=== PATIENT | female | born 1960 | race Caucasian/White ===

== ENCOUNTER 2016-09-20 06:40 | Emergency (ER) | payer OTHER ==
[~2016-09-20] VITALS: Ht 167.6 cm; Wt 67.0 kg
[~2016-09-20 06:40] MED LIST: ACET-1256 PO; CNC/36 PO; LITH300T2 PO; LMC/150 PO; LTHSR/300 PO; ZOLP5TAB PO
[2016-09-20 06:43] VITALS: TEMP 36.3; Ht 167.6 cm; Wt 67.0 kg
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
[2016-09-20 07:31] LABS: BASO % 0.2 %; BASO ABS # 0.01 K/uL (0-0.2); COMPLETE YES; EOS % 0.6 %; HEMATOCRIT 43.5 % (37-47); IG% 0.2 %; LYMPH % 22.1 %; LYMPH ABS # 1.12 K/uL (1.2-3.4); MEAN CELL VOLUME 85.3 fL (80-100); MEAN CORPUSCULAR HEMOGLOBIN 29.2 pg (25-34); MEAN CORPUSCULAR HGB CONC 34.3 g/dl (32-36); MEAN PLATELET VOLUME 10.1 fL (7.4-10.4); MONO % 8.5 %; NEUT % 68.4 %; PLATELET COUNT 205 K/uL (130-400); WHITE BLOOD COUNT 5.06 K/uL (4.8-10.8)
[2016-09-20 07:48] LABS: BUN/CREATININE RATIO 16.4 (10-20); CALCIUM 9.3 mg/dl (8.5-10.1); CREATININE 0.75 mg/dl (0.60-1.20); POTASSIUM 3.8 mmol/L (3.5-5.1)
[2016-09-20 07:59] LABS: THYROID STIMULATING HORMONE 1.84 uIu/ml (0.300-4.500)
[2016-09-20 08:22] LABS: ACETAMINOPHEN < 2 ug/ml (10-30)
[2016-09-20 08:45] LABS: MANUAL MICROSCOPIC REQUIRED? NO; REVIEW REQ? YES; URINE APPEARANCE SLIGHTLY CLOUDY (CLEAR); URINE COLOR YELLOW; ZZUR CULT IF INDIC CLEAN CATCH NO
[2016-09-20 08:46] LABS: URINE BILIRUBIN NEG (NEG); URINE NITRITE NEG (NEG); URINE PH 5.5 (4.5-7.5); URINE SPECIFIC GRAVITY 1.007 (1.000-1.030); UROBILINOGEN NEG (NEG)
[2016-09-20 08:48] LABS: URINE EPITHELIAL CELL AUTO >30 /lpf (0-5)
[2016-09-20 08:54] LABS: URINE MUCUS PRESENT (NONE PRSENT)
[2016-09-20 09:20] LABS: BENZODIAZEPINE, URINE NEG (NEG); COCAINE,URINE NEG (NEG); PHENCYCLIDINE, URINE NEG (NEG)
[2016-09-20 15:45] VITALS: BP 123/64; PULSE 87; O2SAT 98
[2016-09-25 10:30] LABS: SYNTHETIC CANNABINOIDS QL URIN NEGATIVE (Negative)
== END 2016-09-20 15:45 ==
LOC: C.EDB 06:41 → C.EDA 15:45
DX: R45.851 Suicidal ideations (principal); F31.9 Bipolar disorder, unspecified; J45.909 Unspecified asthma, uncomplicated

== ENCOUNTER → 2016-11-09 | Outpatient (CLI) | payer OTHER ==
[~2016-11-09] MED LIST changes: -ACET-1256 PO; -CNC/36 PO; -LITH300T2 PO; -LMC/150 PO; -LTHSR/300 PO
== END | disposition home or self-care (01) ==
LOC: C.LABBC 09:33
PROVIDERS: ATTEND Psychiatry & Neurology Geriatric Psychiatry
DX: Z79.899 Other long term (current) drug therapy (principal); Z51.81 Encounter for therapeutic drug level monitoring

== ENCOUNTER → 2017-05-01 | Outpatient (CLI) | payer OTHER | END | disposition home or self-care (01) | LOC: C.PAPS 11:00 | PROVIDERS: ATTEND Physician Assistant | DX: Z12.4 Encounter for screening for malignant neoplasm of cervix (principal) ==

== ENCOUNTER → 2017-08-01 | Outpatient (CLI) | payer OTHER ==
[2017-08-01 13:39] LABS: BASO % 0.6 %; BASO ABS # 0.03 K/uL (0-0.2); COMPLETE YES; EOS % 6.8 %; HEMATOCRIT 40.3 % (37-47); LYMPH % 26.1 %; LYMPH ABS # 1.26 K/uL (1.2-3.4); MEAN CELL VOLUME 89.6 fL (80-100); MEAN CORPUSCULAR HEMOGLOBIN 28.4 pg (25-34); MEAN CORPUSCULAR HGB CONC 31.8 g/dl (32-36); MEAN PLATELET VOLUME 10.7 fL (7.4-10.4); MONO % 8.9 %; NEUT % 57.6 %; PLATELET COUNT 184 K/uL (130-400); WHITE BLOOD COUNT 4.82 K/uL (4.8-10.8)
[2017-08-01 14:03] LABS: BLOOD UREA NITROGEN 18 mg/dl (7-18); BUN/CREATININE RATIO 19.5 (10-20); CALCIUM 9.3 mg/dl (8.5-10.1); CARBON DIOXIDE 29 mmol/L (21-32); CHLORIDE 108 mmol/L (98-107); CREATININE 0.93 mg/dl (0.60-1.20); GLUCOSE 87 mg/dl (70-99); SODIUM 140 mmol/L (136-145)
== END | disposition home or self-care (01) ==
LOC: C.LABBC 09:13
PROVIDERS: ATTEND Psychiatry & Neurology Psychiatry
DX: Z79.899 Other long term (current) drug therapy (principal)